=== PATIENT | male | born 1935 | race Caucasian/White ===

== ENCOUNTER 2016-05-17 22:58 | Observation (INO) ==
--- NOTE | 2016-05-17 23:41 | Emergency Department Note ---
Addendum entered and electronically signed by Declan Amin DO 05/18/16 04:17: EKG shows a left bundle branch block with a rate of [address] changes. Original Note: Disposition Clinical Impression: Pleural effusion, Abdominal pain Constipation Qualifiers: Constipation type: other constipation type Qualified Code(s): K59.09 - Other constipation Disposition: Admitted As Inpatient Condition: Fair Fall HPI - General Chief Complaint: ED Fall Stated Complaint: fall /constipation Time Seen by Provider: 05/17/16 23:18 Source: patient, EMS Nursing Notes Reviewed: Yes Vital Signs Reviewed: Yes - History of Present Illness HPI Narrative: 80-year-old man presents to emergency department with a chief complaint of abdominal pain after a fall. He was using the restroom trying to have a bowel movement. He has been constipated for several days. He states he almost passed out and fell forward but did not completely lose consciousness. Since then his abdomen has been hurting him quite a bit. He is on Coumadin and Plavix. He has had bypass surgery years ago. He complains of diffuse abdominal pain and swelling. Patient initially hypotensive. He is talkative and otherwise appropriate. There is some bruising across his abdomen. Patient' s daughter is here and they state that he is in a shelter on hospice and he is a DNR. They would not want any blood products transfusions. They would not want any chest compressions or heroic efforts. I did immediately do a bedside ultrasound which showed no free fluid on FAST exam. We will immediately sent to CT scan. - Related Data Home Medications Medication Instructions Recorded Confirmed Insulin Glargine,Hum.rec.anlog 15 unit SQ QAM #0 11/08/14 05/18/16 [Lantus Solostar] Aspirin 81 mg PO HS 11/09/14 05/18/16 Atorvastatin Calcium [Lipitor] 20 mg PO QAM 11/09/14 05/18/16 Calcium Acetate [Phos-LO] 667 mg PO QID 11/09/14 05/18/16 Furosemide [Lasix] 40 mg PO DAILY 11/09/14 05/18/16 Insulin LISPRO [Humalog] 100 unit SQ ACHS 11/09/14 05/18/16 Isosorbide MONOnitrate [Isosorbide 60 mg PO QPM 11/09/14 05/18/16 Mononitrate ER] Levothyroxine Sodium [Synthroid] 137 mcg PO QAM 11/09/14 05/18/16 Omeprazole [PriLOSEC] 20 mg PO QAM 11/09/14 05/18/16 Amiodarone [Cordarone] 200 mg PO QPM 01/31/15 05/18/16 Amlodipine [Norvasc] 10 mg PO QAM 01/31/15 05/18/16 Enalapril Maleate [Vasotec] 2.5 mg PO QAM 01/31/15 05/18/16 Lisinopril [Zestril] 20 mg PO BID 12/19/15 05/18/16 Multivitamin [Multivitamins] 1 tab PO DAILY 12/19/15 05/18/16 Previous Rx's Medication Instructions Recorded CloNIDine HCl 0.1 mg PO BID #90 tablet 11/23/14 Allergies Allergy/AdvReac Type Severity Reaction Status Date / Time codeine AdvReac Hallucinati Verified 11/10/15 07:33 ng All systems ED: reviewed and negative except as stated. Constitutional: Denies: fever Cardiovascular: Denies: chest pain Respiratory: Denies: cough, dyspnea Gastrointestinal: Reports: abdominal pain, nausea. Denies: vomiting, diarrhea Genitourinary: Denies: urgency, dysuria Musculoskeletal: Denies: back pain, neck pain Integumentary: Denies: rash Neurological: Denies: headache, weakness, numbness Fall PMH - Past Medical History Medical history: Reports: arthritis, atrial fibrillation, cancer, cardiomyopathy , CHF, coronary artery disease, diabetes, dialysis, GERD, hyperlipidemia, hypertension, myocardial infarction, osteoporosis, renal disease, thyroid disease, venous stasis, other Surgical history: Reports: cataract, coronary bypass (CABG), vascular surgery, other Psychiatric history: Reports: no psych history - Social History Smoking Status: Former smoker Alcohol use: Reports: none Drug use: Reports: none Physical Exam General: Appears well, alert and oriented x 3, talkative and appropriate Cardiovascular: Tachycardic around 112. S1, S2. No murmurs, rubs or gallops. Respiratory: Breath sounds clear bilaterally. No wheezing, rales or rhonchi. No resp distress Abdomen: Abdomen is diffusely tender without any rebound or rigidity. He has some bruising across the anterior abdomen. There is no palpable organomegaly. FAST exam negative. Normal bowel sounds throughout. Aorta does not appear dilated. Eyes: conjunctiva clear HENT: Normocephalic, no signs of head injury. No oral mucosal lesions. Moist mucous membranes Neuro: No motor or sensory deficit. Musculoskeletal: No joint tenderness or swelling : No genital swelling or tenderness Skin: No lesions. No diaphoresis. Normal turgor. Normal color Psych: Appropriate - General General appearance: alert, in no apparent distress Course Course Narrative: Presents the emergency department with a chief complaint of abdominal pain. He has been constipated and was straining to have a BM. He did fall. He is on Coumadin. Abdomen is distended and tender throughout. CT scan shows colonic distention with large stool burden consistent with constipation. He has a lot of stool within his colon. He will be given an enema here. Patient has severe pain but it is difficult to give him pain medication due to his low blood pressure. He states he is always hypotensive. He is a dialysis patient and was dialyzed yesterday. He has a moderate right-sided pleural effusion and does report some dyspnea. Patient is DNR, does not want blood products or any chest compressions if needed. Plan to admit for pleural effusion, significant constipation and pain. Vital Signs Temperature 97.6 F 05/17/16 23:01 Pulse Rate 88 05/17/16 23:01 Respiratory Rate 16 05/17/16 23:01 Blood Pressure 68/42 05/17/16 23:01 O2 Sat by Pulse Oximetry 96 05/17/16 23:01 Temperature 97.6 F 05/17/16 23:01 Pulse Rate 80 05/18/16 01:15 Respiratory Rate 28 05/18/16 05:55 Blood Pressure 83/40 05/18/16 03:48 O2 Sat by Pulse Oximetry 88 L 05/18/16 05:55 Oxygen Delivery Oxygen Delivery Nasal Cannula Fall - Lab Data Result diagrams: 05/18/16 00:11 05/18/16 00:11 Lab Results 05/18/16 05/18/16 05/18/16 Range/Units 00:11 00:11 00:11 WBC 12.2 H (4.3-11.1) K/mcL RBC 4.22 (4.19-5.50) M/mcL Hgb 11.9 L (12.9-16.9) g/dL Hct 38.6 (37.5-50.1) % MCV 91.5 (83.0-100.0) fL MCH 28.2 (28.0-33.3) pg MCHC 30.8 L (31.6-35.5) g/dL RDW 16.2 H (11.5-14.5) % Plt Count 153 (140-400) K/mcL MPV 10.6 (9.4-12.4) fL Immature Gran % 0.4 (0-4) % Seg Neutrophils % 97.0 % Lymphocytes % 1.5 % Monocytes % 0.9 % Eosinophils % 0.1 % Basophils % 0.1 % Neutrophils # 11.8 H (1.6-8.9) K/mcL Lymphocytes # 0.2 L (0.6-4.6) K/mcL Monocytes # 0.1 (0.0-1.3) K/mcL Eosinophils # 0.0 (0.0-0.6) K/mcL Basophils # 0.0 (0.0-0.2) K/mcL Toxic Granulation Present A (Not Present) Platelet Estimate Normal (Normal) Polychromasia 1+ A (Not Present) Poikilocytosis 1+ A (Not Present) Anisocytosis 1+ A (Not Present) PT 18.9 H (9.4-12.1) Seconds INR 1.7 Sodium 133 L (136-145) mEq/L Potassium 4.0 (3.5-4.5) mEq/L Chloride 94 L (98-109) mEq/L Carbon Dioxide 19 (19-29) mEq/L BUN 42 H (8-26) mg/dL Creatinine 5.36 H (0.72-1.25) mg/dL Est GFR ( Amer) 13 L (> 60) Est GFR (Non-Af Amer) 10 L (> 60) BUN/Creatinine Ratio 8 (6-26) Glucose 230 H (70-99) mg/dL Calculated Osmolality 294 (280-300) Calcium 9.2 (8.6-10.8) mg/dL Attestation Statement - Attestation Attestation: Dr Hawley note: Pt seen in conjunction w/ Resident Dr Declan Amin; Please see his charting for complete documentation; I agree w/ pt's treatment and disposition and spent face to face time with the pt; CT scan results noted. Patient's family is the power of attorney law clerk and medical power of attorney law clerk at bedside. Be admitted for comfort care measures only. Chronically hypotensive. Does not make urine. Acute on chronic constipation Inoperable Heart disease. Has been a hospice patient for many months now
[2016-05-18 00:18] LABS: Basophils % 0.1 %; Eosinophils % 0.1 %; Hematocrit 38.6 % (37.5-50.1); Hemoglobin 11.9 g/dL (12.9-16.9); Immature Granulocytes % 0.4 % (0-4); Lymphocytes # 0.2 K/mcL (0.6-4.6); Lymphocytes % 1.5 %; Mean Corpuscular HGB Conc 30.8 g/dL (31.6-35.5); Mean Corpuscular Hemoglobin 28.2 pg (28.0-33.3); Mean Corpuscular Volume 91.5 fL (83.0-100.0); Mean Platelet Volume 10.6 fL (9.4-12.4); Monocytes # 0.1 K/mcL (0.0-1.3); Monocytes % 0.9 %; Neutrophils # 11.8 K/mcL (1.6-8.9); Platelet Count 153 K/mcL (140-400); Red Blood Count 4.22 M/mcL (4.19-5.50); Red Cell Distribution Width 16.2 % (11.5-14.5)
[2016-05-18 00:25] LABS: INR 1.7; Prothrombin Time 18.9 Seconds (9.4-12.1)
[2016-05-18 00:30] LABS: Calcium 9.2 mg/dL (8.6-10.8)
[2016-05-18 00:51] LABS: Anisocytosis 1+ (Not Present); Platelet Estimate Normal (Normal); Poikilocytosis 1+ (Not Present); Polychromasia 1+ (Not Present); Toxic Granulation Present (Not Present)
[2016-05-18] MEDS ORDERED: Milk and Molasses Enema 200 ML RC ONE (01:40)
[2016-05-18] MEDS ORDERED: *HR* Morphine 2 MG/ML SYRINGE IV ONE (02:16)
--- NOTE | 2016-05-18 04:55 | Internal Med History&Physical ---
Date of Encounter: 05/18/16 Time of Encounter: 04:50 Assessment and Plan (1) Hypotension Current visit: Yes Status: Acute Blood pressures have been in the 80's/40's upon arrival Hydrate gently in setting of pleural effusion and h/o ESRD He does state he has been running low especially after dialysis, but not this low Will start empiric antibiotics with Vanc/Zosyn as infectious cause cannot be ruled out at this point Family appears to be against starting a central line as he is a hospice patient ; palliative consulted Qualifiers: Qualified Code(s): I95.9 - Hypotension, unspecified (2) Abdominal pain Current visit: Yes Status: Acute Likely secondary to constipation as demonstrated on CT Will administer Lactulose to promote bowel movements Holding off on administration of pain medication in setting of hypotension Start NGT for symptomatic relief Qualifiers: Qualified Code(s): R10.9 - Unspecified abdominal pain (3) Constipation Current visit: Yes Status: Acute As demonstrated on CT abdomen He was given enema in ED which only provided minimal relief Will start patient on Lactulose and hydrate gently Qualifiers: Constipation type: other constipation type Qualified Code(s): K59.09 - Other constipation (4) Acute and chronic respiratory failure Current visit: Yes Status: Acute Patient currently on 6 L now and maintaining saturations in the high 80's, up from his home demand of 5 L He is DNR-CC and will need BiPAP if he continues to require additional oxygen Qualifiers: Qualified Code(s): J96.20 - Acute and chronic respiratory failure, unspecified whether with hypoxia or hypercapnia (5) Pleural effusion Current visit: Yes Status: Acute Demonstrated on CT/CXR Holding off on diuresis/dialysis for now in setting of hypotension Support with supplemental oxygen (6) Diabetes mellitus with renal manifestations, uncontrolled Current visit: No Status: Chronic Patient states he is a type I diabetic Will start on low dose SSI ACHS Qualifiers: Diabetes mellitus type: type 2 Diabetes mellitus complication detail: with chronic kidney disease Diabetes mellitus petroleum terminal plant operator insulin use: with petroleum terminal plant operator use Chronic kidney disease stage: on chronic dialysis Qualified Code(s) : E11.22 - Type 2 diabetes mellitus with diabetic chronic kidney disease; E11.65 - Type 2 diabetes mellitus with hyperglycemia; N18.6 - End stage renal disease; Z79.4 - skilled nursing (current) use of insulin; Z99.2 - Dependence on renal dialysis (7) ESRD (end stage renal disease) on dialysis Current visit: No Status: Chronic Patient gets dialysis MWF managed by Dr. Sen, who we will consult Internal Medicine - H&P: HPI Chief complaint: Fall, constipation [facility] Plans for Post Hospital Care: [facility] History of present illness: Mr. Tong is a 80 year old male who presents from [facility] after sustaining a fall. He has a history of dementia and and daughter are at bedside and able to assist with history. They state that patient was on the bedside commode earlier today having a bowel movement when he nearly lost consciousness and fell forward, hitting his head on the ground. He has history of ESRD and is on dialysis Tuesday managed by Dr. Sen. He has been feeling constipated since yesterday after hemodialysis, and has been having severe abdominal pain in the lower quadrants. Of note, patient is currently on hospice, however patient's family claims that the nurses at the long-term told him to come to the ER. They want to continue his DNR status and do not want any heroic measures or platelet transfusions at this time. While in the emergency department, patient received a dose of milk and molasses enema but only minimal bowel movement. He also presented with hypotension, but states that he normally runs low however this is lower than his baseline. Past Med Surg Social Fam HX - Past Medical History Medical history: arthritis, atrial fibrillation, cancer, cardiomyopathy, CHF, coronary artery disease, diabetes, dialysis, GERD, hyperlipidemia, hypertension , myocardial infarction, osteoporosis, renal disease, thyroid disease, venous stasis, other Psychiatric history: no psych history - Past Surgical History Surgical History: cataract, coronary bypass (CABG), vascular surgery, other - Social History Smoking Status: Former smoker Smokeless Tobacco Status: No Alcohol use: none Drug use: none - Family History Mother Adopted: No Family Member Ethnicity: Non- Living Status: Hx Family Endocrine Disorder: Yes (Diabetes mellitus) Father Adopted: No Family Member Ethnicity: Non- Living Status: Hx Family Cardiac Disorders: Yes Hx Family Respiratory Disorders: Yes Hx Family Cancer: No Hx Family GI Disorders: No Hx Family Endocrine Disorder: Yes Hx Family Neuromuscular Disorders: No Hx Family Neurologic Disorders: No Hx Family HEENT Disorders: No Hx Family Autoimmune Disorders: No Brother Adopted: No Family Member Ethnicity: Non- Living Status: Still Living Hx Family Respiratory Disorders: Yes (COPD) Internal Medicine - H&P: Meds Insulin Glargine,Hum.rec.anlog [Lantus Solostar] 15 unit SQ QAM #0 11/08/14 [ History] Aspirin 81 mg PO HS 11/09/14 [History] Atorvastatin Calcium [Lipitor] 20 mg PO QAM 11/09/14 [History] Calcium Acetate [Phos-LO] 667 mg PO QID 11/09/14 [History] Furosemide [Lasix] 40 mg PO DAILY 11/09/14 [History] Insulin LISPRO [Humalog] 100 unit SQ ACHS 11/09/14 [History] Isosorbide MONOnitrate [Isosorbide Mononitrate ER] 60 mg PO QPM 11/09/14 [ History] Levothyroxine Sodium [Synthroid] 137 mcg PO QAM 11/09/14 [History] Omeprazole [PriLOSEC] 20 mg PO QAM 11/09/14 [History] CloNIDine HCl 0.1 mg PO BID #90 tablet 11/23/14 [Rx] Amiodarone [Cordarone] 200 mg PO QPM 01/31/15 [History] Amlodipine [Norvasc] 10 mg PO QAM 01/31/15 [History] Enalapril Maleate [Vasotec] 2.5 mg PO QAM 01/31/15 [History] Lisinopril [Zestril] 20 mg PO BID 12/19/15 [History] Multivitamin [Multivitamins] 1 tab PO DAILY 12/19/15 [History] Allergies codeine Adverse Reaction (Verified 11/10/15 07:33) Hallucinating All Systems PM: A 10-system review of systems was performed and is negative for pertinent findings except as documented above in the HPI. - Constitutional Constitutional: falls, lethargy, weakness, no chills, no fever(s), no night sweats - EENT Eyes: no change in vision, no discharge, no pain, no photophobia Ears: no ear discharge, no ear pain, no tinnitus Nose, mouth and throat: no dysphagia, no nasal discharge, no neck pain, no sore throat - Cardiovascular Cardiovascular ROS IM: dyspnea, dyspnea on exertion, no chest pain, no diaphoresis, no lightheadedness, no palpitations, no syncope - Respiratory Respiratory: cough, dyspnea, no wheezing, no excessive phlegm production - Gastrointestinal Gastrointestinal: abdominal pain, constipation, no diarrhea, no hematemesis, no hematochezia, no melena, no nausea, no vomiting - Musculoskeletal Musculoskeletal ROS IM: no numbness, no tingling - Integumentary Integumentary IM: no rash, no unusual bruising - Neurological Neurological ROS: no confusion, no convulsions, no focal weakness, no numbness, no tingling, no tremor(s) - Constitutional Vitals: Temp Pulse Resp BP Pulse Ox 97.6 F 80 16 83/40 97 05/17/16 23:01 05/18/16 01:15 05/18/16 03:48 05/18/16 03:48 05/18/16 01:15 General appearance: Present: cooperative, mild distress, A&O X 3, answers questions appropriately - Head Head exam: Present: atraumatic, normocephalic - Eye Eye exam: Present: PERRL, conjuntiva pink, sclera anicteric - Neck Neck exam general surgery: Present: supple, trachea midline. Absent: lymphadenopathy - Respiratory Respiratory exam: Present: decreased breath sounds. Absent: accessory muscle use, rales, rhonchi, wheezes - Cardiovascular Cardiovascular exam: Present: RRR, +S1, +S2. Absent: diastolic murmur, gallop, rubs, systolic murmur - GI/Abdominal GI/Abdominal exam: Present: distended, hypoactive bowel sounds, tenderness, no peritoneal signs. Absent: guarding, rigid - Extremities Exam Extremities exam: Present: pedal edema (1+ pitting edema BL LE), warm, radial pulses palpable and symetrical. Absent: calf tenderness, cyanotic - Neurological Exam Neurological exam: Present: alert, oriented X3, no focal deficits. Absent: facial droop, speech deficit - Skin Skin exam: Present: dry, intact Internal Med - H&P Results - Labs CBC & Chem 7: 05/18/16 00:11 05/18/16 00:11
[2016-05-18] MEDS ORDERED: Ondansetron 4 MG/2 ML VIAL IVP PRN (05:06)
[2016-05-18] MEDS ORDERED: Naloxone 0.4 MG/ML INJ IVP PRN (05:06)
[2016-05-18] MEDS ORDERED: 0.9 % Sodium Chloride 250 ML IVC ONE (05:11)
[2016-05-18] MEDS ORDERED: D5% in Water 1,000 ML IV PRN (05:13)
[2016-05-18] MEDS ORDERED: Dextrose Gel 15 GM PO PRN ×2 (05:13)
[2016-05-18] MEDS ORDERED: *HR* Dextrose 50 % in Water (Syg) 50 ML SYRINGE IVP PRN (05:13)
[2016-05-18] MEDS ORDERED: Lactulose Oral Soln 20 GM/30 ML UDC PO SCH (05:15)
[2016-05-18] MEDS ORDERED: Vancomycin 1,250 MG in D5% in Water 250 ML IVPB SCH (06:00)
[2016-05-18] MEDS ORDERED: Piperacillin/Tazobactam 3.375 GM in D5% in Water (Mini-Bag+) 100 ML IVPB SCH (06:00)
[2016-05-18] MEDS ORDERED: Pantoprazole 40 MG VIAL IVP SCH (06:30)
--- NOTE | 2016-05-18 06:31 | Event Note ---
Date of Encounter: 05/18/16 Time of Encounter: 06:27 Patient seen and examined with medical staff specialist. Patient with multiple comorbidities, currently under hospice care presents with a syncopal episode. He has severe abdominal distension and probably vasovagaled. His SBP is 60-70 and is behaving septic. doesnt want agressive treatment but not decided on withdrawal of care yet. Will ask palliative care to see patient. she agreed to NG tube suction, BiPAP, enemas. Will also cover with antibiotics for suspected sepsis. POA do not want pressors. DNI/DNR, hospice care. Will consult palliative care to guide decision of withdrawal of care. Patient still undergoes hemodialysis.
[2016-05-18 06:46] VITALS: BP 57/39
[2016-05-18] MEDS ORDERED: Hydrocortisone Sodium Succ 100 MG/2 ML VIAL IVP SCH (07:00)
[2016-05-18] MEDS ORDERED: Vancomycin 1,250 MG in D5% in Water 250 ML IVPB ONE (07:00)
[2016-05-18] MEDS ORDERED: Insulin LISPRO 300 UNITS/3 ML VIAL SQ SCH ×2 (07:30→21:00)
--- NOTE | 2016-05-18 07:54 | Death Note ---
Discharge Sum: Summary - Date and Time Date of admission: 05/18/16 03:14 Date of : 05/18/16 Time of : 07:23 - Summary Details: Mr. Tong is a 80/M patient with history of diabetes mellitus and kidney disease with end-stage renal disease on hemodialysis, atrial fibrillation, congestive heart, coronary artery disease was hospitalized here after presenting from [facility] after a fall. He does have a history of dementia. He had also been complaining of abdominal pain and constipation. The patient was on hospice prior to presentation. In the ER the patient was treated for constipation with milk and molasses enema but did not have any significant bowel movements. He was also hypotensive on presentation. His family members requested the patient be kept comfortable and DNR/DNI. He was treated with supportive measures and required supplemental oxygen. This morning at 7:23 AM, he was nonresponsive and evaluated by 2 nurses and found to have . I was notified and I examined the patient at 7:40 AM. The patient appears to have from acute cardiorespiratory arrest. Family was present at bedside and notified. - Additional Data Confirmation of as documented by pronouncing clinician: no pulse, no respirations, no heart sounds Family: at bedside Attending/PCP notified?: Yes Attending physician: Sparkle Vo MD Was code activated?: No Autopsy requested?: No yarn examiner skeins notified?: No Advance directives: Yes Discharge Sum: Diag - PCOD Probable Cause of : Cardiorespiratory arrest Discharge Sum: Prov - Provider Primary care physician: Ernesto Alanis MD Admitting clinician: Ru Bolivar Consults: 05/18/16 05:10 Consult to Animal Anatomy Teacher [CONS] Routine Reason for SW Consult: patient from [place] under hospice care 05/18/16 05:14 Consult to Nephrology [CONS] Routine Consulting Provider: [facility] Reason for Consult: established patient, gets dialysis MWF Call Completed: No 05/18/16 05:55 Consult to Palliative Care [CONS] Routine Comment: Consulting Provider: [facility] [place] Pronouncing clinician: Sparkle Vo - Attending Attestation This document has been at least partially created by [employer] voice recognition technology by Dr. Vo. Errors in grammar, wording or other phrases may exist. If errors are found after the documentation is signed, they will be addressed individually in the addendum section of this document when appropriate.
[2016-05-18] MEDS ORDERED: Calcium Acetate 667 MG CAPSULE PO SCH (08:00)
[2016-05-18] MEDS ORDERED: Piperacillin/Tazobactam 2.25 GM in D5% in Water (Mini-Bag+) 100 ML IVPB SCH (08:00)
[2016-05-18] MEDS ORDERED: Aspirin 81 MG TAB.CHEW PO SCH (09:00)
[2016-05-18] MEDS ORDERED: Hydrocortisone 10 MG TABLET PO SCH (09:00)
[2016-05-18] MEDS ORDERED: Aminoglycoside Consult 1 EACH MC ONE (12:18)
--- NOTE | 2016-05-18 13:00 | Electrocardiograph Report ---
[place] [id number] Test Date: 2016-05-18 Pat Name: Doe Tong Department: 104 Room: 2A48 Gender: M Senior Qa Automation Engineer: : [id number] Requested By: Declan Amin Order Number: [id number] Reading MD: Nona Al Measurements Intervals [place] Rate: 80 P: 23 MT: 205 QRS: -32 QRSD: 181 T: 132 QT: 479 QTc: 515 Interpretive Statements SINUS RHYTHM MARKED LEFT AXIS DEVIATION LEFT BUNDLE BRANCH BLOCK Electronically Signed On 05-18-2016 12:58:52 EST by Nona Al
[2016-05-18] MEDS ORDERED: *HR* Amiodarone 200 MG TABLET PO SCH (18:00)
== END 2016-05-18 12:19 | disposition expired ==
LOC: 2NNU 22:58 → EMEROO 22:58 → SUATTDRO 05-18 03:14 → 2ANU 05-18 03:38
PROVIDERS: ADMIT Hospitalist; ATTEND Internal Medicine